=== PATIENT | female | born 1940 | race Caucasian/White ===

== ENCOUNTER 2019-07-13 06:58 | Outpatient (REF) | payer MEDICARE, SELFPAY ==
[2019-07-13 08:26] LABS: Estmated Average Glucose 143; Hemoglobin A1C 6.6 % (4.0-6.0)
[2019-07-13 10:51] LABS: Chol HDL Ratio 3.28 mg/dL (0.0-4.40); Cholesterol 141 mg/dL (0-200); Glucose 105 mg/dL (65-115); HDL Cholesterol 43 mg/dL (60-100); LDL Cholesterol Calculated 76 mg/dL (50-129); LDL HDL Ratio 1.77 RATIO (0.00-3.22); Triglycerides 108 mg/dL (0-150)
== END 2019-07-13 06:59 | disposition home or self-care (01) ==
LOC: LAB 06:58
PROVIDERS: Family Provider Family Medicine; Visit Provider Dermatology
DX: Z01.89 Encounter for other specified special examinations (principal)
CPT/HCPCS: 80061; 82947; 83036

== ENCOUNTER 2019-07-20 11:33 | Outpatient (CLI) | payer MEDICARE, SELFPAY ==
--- NOTE | 2019-07-20 | XR_ITS ---
WS: [id number] ELBOW LEFT TECHNIQUE: 2 views of the left elbow CLINICAL INFORMATION: LEFT ELBOW PAIN COMPARISON: None. FINDINGS: No significant joint effusion. Distal humerus is normal in appearance. Normal radial head. Normal ole cranon. No evidence of acute fracture dislocation. XR/XR elbow LT 2V [id number] IMPRESSION: Normal left elbow.
== END 2019-07-20 11:34 | disposition home or self-care (01) ==
LOC: RADOUTREAD 12:35
PROVIDERS: Family Provider Family Medicine; Visit Provider Family Medicine
DX: Z76.89 Persons encountering health services in other specified circumstances (principal)

== ENCOUNTER 2019-07-31 10:27 | Outpatient (RCR) | payer MEDICARE, SELFPAY | END 2019-09-12 23:00 | disposition home or self-care (01) | LOC: SOT 10:27 | PROVIDERS: Family Provider Family Medicine; PCP Family Medicine; Referring Provider Orthopaedic Surgery; Visit Provider Orthopaedic Surgery | DX: M77.02 Medial epicondylitis, left elbow (principal) | CPT/HCPCS: 97110; 97140; 97167 ==

== ENCOUNTER 2019-08-05 06:00 | Outpatient (RCR) | payer MEDICARE, OTHER, SELFPAY | END 2019-09-04 23:59 | disposition home or self-care (01) | LOC: SOT 06:00 | PROVIDERS: Family Provider Family Medicine; PCP Family Medicine; Referring Provider Orthopaedic Surgery; Visit Provider Orthopaedic Surgery | DX: M77.02 Medial epicondylitis, left elbow (principal) | CPT/HCPCS: 97035; 97110; 97140; 97530; L3908 ==

== ENCOUNTER 2019-09-05 06:00 | Outpatient (RCR) | payer MEDICARE, OTHER, SELFPAY | END 2019-10-04 23:59 | disposition home or self-care (01) | LOC: SOT 06:00 | PROVIDERS: Family Provider Family Medicine; PCP Family Medicine; Referring Provider Orthopaedic Surgery; Visit Provider Orthopaedic Surgery | DX: M77.02 Medial epicondylitis, left elbow (principal) | CPT/HCPCS: 97110 ==

== ENCOUNTER 2020-02-13 13:24 | Outpatient (CLI) | payer MEDICARE, SELFPAY ==
--- NOTE | 2020-02-13 13:32 | MM_ITS ---
WS: [id number] BILATERAL DIGITAL SCREENING MAMMOGRAPHY WITH CAD CLINICAL INFORMATION: SCREENING HISTORY: Screening mammogram. No current complaints. COMPARISON: TECHNIQUE: Bilateral CC and MLO views. FINDINGS: The breasts are composed of heterogeneous fibroglandular density tissue, which can limit the detectio n of small underlying mass lesions. No suspicious mass, asymmetry, calcifications, or architectural d istortion. No evidence of malignancy. Stable secretory and punctate calcifications. Vascular calcific ation. MM/[id number] IMPRESSION: BI-RADS: 2-Benign FOLLOW UP: 1 Year Follow-up Recommend return to annual screening mammography.
== END 2020-02-13 13:25 | disposition home or self-care (01) ==
LOC: RADSHAW 13:31
PROVIDERS: PCP Family Medicine; Visit Provider Family Medicine
DX: Z12.31 Encounter for screening mammogram for malignant neoplasm of breast (principal)
CPT/HCPCS: 77067

== ENCOUNTER 2021-03-11 11:10 | Outpatient (CLI) | payer MEDICARE, SELFPAY ==
--- NOTE | 2021-03-11 11:16 | MM_ITS ---
WS: [id number] BILATERAL SCREENING DIGITAL MAMMOGRAM WITH CAD HISTORY: SCREENING COMPARISON: 02/13/2020 and 07/07/2018 Bilateral CC and MLO views submitted. Computer aided detection analyzed. Breast composition: The breasts are heterogeneously dense, which may obscure small masses. No suspici ous masses, microcalcifications or architectural distortion. Scattered benign calcifications and vasc ular calcifications. MM/[id number] IMPRESSION: BI-RADS: 2-Benign FOLLOW UP: 1 Year Follow-up
== END 2021-03-11 11:11 | disposition home or self-care (01) ==
LOC: RADSHAW 11:15
PROVIDERS: PCP Family Medicine; Visit Provider Family Medicine
DX: Z12.31 Encounter for screening mammogram for malignant neoplasm of breast (principal)
CPT/HCPCS: 77067

== ENCOUNTER 2022-04-02 13:43 | Outpatient (CLI) | payer MEDICARE, OTHER, SELFPAY ==
--- NOTE | 2022-04-02 13:51 | MM_ITS ---
WS: [id number] BILATERAL 3D TOMOSYNTHESIS DIGITAL SCREENING MAMMOGRAPHY WITH CAD CLINICAL INFORMATION: SCREENING HISTORY: Screening mammogram. No current complaints. COMPARISON: April 02, 2022 TECHNIQUE: Bilateral CC and MLO views. FINDINGS: Scattered fibroglandular densities bilaterally. No suspicious focal mass, asymmetry, calcifications, or architectural distortion. No evidence of malignancy. Punctate and secretory calcifications. Vascul ar calcifications. MM/[place] [id number] IMPRESSION: BI-RADS: 2-Benign FOLLOW UP: 1 Year Follow-up Recommend return to annual screening mammography.
== END 2022-04-02 13:44 | disposition home or self-care (01) ==
LOC: RAD 13:43
PROVIDERS: PCP Family Medicine; Visit Provider Family Medicine
DX: Z12.31 Encounter for screening mammogram for malignant neoplasm of breast (principal); R30.0 Dysuria
CPT/HCPCS: 77063; 77067; 81000; 87086

== ENCOUNTER 2022-04-13 12:44 | Outpatient (CLI) | payer MEDICARE, OTHER, SELFPAY ==
--- NOTE | 2022-04-13 13:30 | XR_ITS ---
WS: [id number] SCREENING DEXA SCAN RSB SPINE CLINICAL INFORMATION: osteoporosis COMPARISON: None. FINDINGS: The L1-L4 bone mineral density measures 1.227 g/cm2. This corresponds to a T score score of 0.4 and Z score of 2.6. Left femoral neck bone mineral density measures 0.837 g/cm2. This corresponds to a T score of -1.4 an d Z score of 1.1. Right femoral neck bone mineral density measures 0.820 g/cm2. This corresponds to a T score -1.5of an d Z score of 0.9. Mean femoral neck bone mineral density measures 0.828 g/cm2. This corresponds to a T score of -1.4 an d Z score of 1.0. XR/XR DEXA axial skeleton* [id number] IMPRESSION: Normal bone mineralization lumbar spine. Osteopenia femoral necks. Patient's FRAX calculated 10 year probability for major osteoporotic fracture i s 15.7 % and osteoporotic hip fracture is 4.8%.
== END 2022-04-13 12:45 | disposition home or self-care (01) ==
LOC: RAD 12:46
PROVIDERS: PCP Family Medicine; Visit Provider Family Medicine
DX: M81.0 Age-related osteoporosis without current pathological fracture (principal); M85.852 Other specified disorders of bone density and structure, left thigh; M85.851 Other specified disorders of bone density and structure, right thigh; R30.0 Dysuria
CPT/HCPCS: 77080; 81000

== ENCOUNTER → 2022-06-08 07:45 | Outpatient (BNVA) | payer MEDICARE, OTHER, SELFPAY | PROVIDERS: PCP Family Medicine; Visit Provider Family Medicine | DX: E03.9 Hypothyroidism, unspecified (principal); E78.5 Hyperlipidemia, unspecified; I10 Essential (primary) hypertension; R73.9 Hyperglycemia, unspecified | CPT/HCPCS: 80053; 80061; 83036; 84443 ==

== ENCOUNTER → 2022-11-25 08:21 | Outpatient (BNVA) | payer MEDICARE, OTHER, SELFPAY | PROVIDERS: PCP Family Medicine; Visit Provider Family Medicine | DX: E03.9 Hypothyroidism, unspecified (principal); E78.5 Hyperlipidemia, unspecified; I10 Essential (primary) hypertension | CPT/HCPCS: 84443 ==

== ENCOUNTER 2023-04-18 19:38 | Emergency (ER) | payer MEDICARE, OTHER, SELFPAY ==
[2023-04-18 19:42] VITALS: BP 175/73; PULSE 82; RESP 18; TEMP 36.4; O2SAT 99; BMI 24.6
--- NOTE | 2023-04-18 19:57 | W.ED.FEMALGU ---
HPI - Female Genitourinary General: Chief complaint: Urogenital-Female Stated complaint: uti, low abd pain Time Seen by Provider: 04/18/23 19:55 History of Present Illness: 83-year-old female comes in today with urinary discomfort since Tuesday. Patient noticed blood in her urine today when she wiped. Patient appears nontoxic. Patient does have a history of urinary tract infections and vaginitis. Patient takes medications for blood pressure, cholesterol, high blood pressure,. Patient's had a history of hysterectomy. Associated symptoms: Deny nausea Review of Systems General: Reports: 10 or more systems reviewed and unremarkable except in HPI and below Const: Reports: chills; Denies: fever(s) Card: Denies: chest pain Resp: Denies: dyspnea GI: Denies: nausea, vomiting, diarrhea or constipation : Reports: difficulty voiding and hematuria Musc: Denies: neck pain or back pain Skin/Breast: Denies: rash PFSH ED PFSH: Medical History Hyperlipidemia Hypertension Hypothyroidism Postmenopausal osteoporosis TIA (transient ischemic attack) Vitamin D deficiency Surgical History History of total abdominal hysterectomy and bilateral salpingo-oophorectomy Hx of tonsillectomy Social History Smoking and tobacco/nicotine status: never used tobacco/nicotine Alcohol intake: never Current occupational status: retired Physical Exam Const: COMMON NORMALS: alert HENMT: COMMON NORMALS: normocephalic HEAD & SCALP: normocephalic Neck/C-Spine: COMMON NORMALS: full ROM Resp: COMMON NORMALS: normal respiratory effort and clear to auscultation bilaterally AUSCULTATION: clear to auscultation bilaterally Cardio: COMMON NORMALS: regular rate and regular rhythm RATE: regular rate RHYTHM: regular rhythm GI: COMMON NORMALS: Soft to palpation and non-tender PALPATION: Yes Soft to palpation : COMMON NORMALS: Yes no CVA tenderness BLADDER/KIDNEY EXAM: Yes no CVA tenderness EXTERNAL FEMALE EXAM: Yes normal appearance of the urethra and No erythema Back/Pelvis: COMMON NORMALS: no CVA tenderness Extremity: COMMON NORMALS: normal to inspection Neuro: SENSORIUM/ORIENTATION: Yes alert Skin: COMMON NORMALS: turgor normal GENERAL SKIN EXAM: turgor normal Course Vital Signs: Vital signs: Vital Signs Temperature 97.5 F L 04/18/23 19:42 Pulse Rate 82 04/18/23 19:42 Respiratory Rate 18 04/18/23 20:30 Blood Pressure 96/53 04/18/23 20:30 Pulse Oximetry 98 04/18/23 20:30 MDM - Female Medical Decision Making 83-year-old female comes in today for complaints of dysuria and blood in urine. Patient appears nontoxic. Abdomen soft nontender. No CVA tenderness. Examination of the external genitalia notes no swelling or redness of the urethra and no blood in the vaginal vault. Swabs are sent to lab for wet prep and genital culture. Vital signs are normal. Differential diagnosis includes but not limited to urinary tract infection, vaginitis, urethritis, pelvic tumor/cancer. Wet prep was unremarkable. CBC had a white count of 15.6. Bladder wall thickening was noted on CT. CMP was unremarkable. Patient was nontoxic and stable. Patient be treated for acute cystitis with cephalexin 500 mg twice daily for 7 days. Patient was recommended to follow-up with primary care in 1 week for recheck of urine. Recommend return to ER for worsening symptoms. Patient and family both reported understanding. Lab Data 04/18/23 20:01 04/18/23 20:01 Radiology Impressions Abdomen/Pelvis CT 04/18/23 20:06 IMPRESSION: 1. Small pericardial effusion. 2. Diffuse, mild bladder wall thickening . In the correct clinical setting, this may suggest cystitis. Recommend correlation with laboratory findings. Alternatively, this may be secondary to chronic outlet obstruction. 3. Multiple clustered foci of calcifications in both lobes of the liver, findings suggest calcified or partially calcified hemangiomas. 4. Incidental/nonacute findings are listed in the report. COMMENTS: Consistent with the [employer]'s Incidental Findings Committee white paper (J Am Ricki Radiol 2018): Any incidental renal lesion less than 1 cm or classified as too small to characterize, or any incidental cystic renal lesion characterized as simple-appearing, is likely benign. No follow-up imaging is recommended for these lesions per consensus recommendations based on imaging criteria. Laboratory Results WBC 15.66 10^3/uL (3.29-11.43) H 04/18/23 20:01 RBC 3.51 10^6/uL (3.85-5.65) L 04/18/23 20: Hgb 12.00 g/dL (11.27-16.99) 04/18/23 20: Hct 36.8 % (36-47) 04/18/23 20: MCV 104.8 fl (85-98) H 04/18/23 20: MCH 34.2 pg (27-33) H 04/18/23 20: MCHC 32.6 g/dL (30-55) 04/18/23 20: RDW 14.8 % (12.1-15.1) 04/18/23 20: Plt Count 224 10^3/cmm (157-399) 04/18/23 20: MPV 9.4 fL (7.4-10.4) 04/18/23 20: Neut % (Auto) 49.9 % 04/18/23 20: Lymph % (Auto) 24.8 % 04/18/23 20: [place] % (Auto) 22.5 % 04/18/23 20: Eos % (Auto) 1.5 % 04/18/23 20: Baso % (Auto) 0.4 % 04/18/23 20: Neut # (Auto) 7.82 10^3/uL (1.8-7.7) H 04/18/23 20: Lymph # (Auto) 3.9 10^3/uL (0.8-4.8) 04/18/23 20: [place] # (Auto) 3.5 10^3/uL (0.2-0.9) H 04/18/23 20: Eos # (Auto) 0.2 10^3/uL (0.0-0.8) 04/18/23 20: Baso # (Auto) 0.1 10^3/uL (0.0-0.1) 04/18/23 20: Nucleated RBC % (auto) 0 % 04/18/23 20: Nucleated RBCs # 0.0 /100WBC 04/18/23 20: Sodium 136 mmol/L (136-145) 04/18/23 20: Potassium 3.8 mmol/L (3.5-5.1) 04/18/23 20:01 Chloride 99 mmol/L (98-107) 04/18/23 20:01 Carbon Dioxide 25 mmol/L (22-29) 04/18/23 20: Anion Gap 15.8 (5-19) 04/18/23 20: BUN 16 mg/dL (8-23) 04/18/23 20: Creatinine 0.7 mg/dL (0.5-0.9) 04/18/23 20: GFR Calculation Not Reportable 04/18/23 20: Glucose 105 mg/dL (65-115) 04/18/23 20: Calculated Osmolality 284 mOsm/kg (285-295) L 04/18/23 20: Calcium 10.0 mg/dL (8.5-10.5) 04/18/23 20: Total Bilirubin 0.6 mg/dL (0.15-1.2) 04/18/23 20: AST 18 U/L (0-32) 04/18/23 20: ALT 20 U/L (0-33) 04/18/23 20:01 Alkaline Phosphatase 81 U/L (35-105) 04/18/23 20:01 Total Protein 7.8 g/dL (6.6-8.7) 04/18/23 20: Albumin 4.6 g/dL (3.5-5.2) 04/18/23 20: Globulin 3.2 g/dL (1.3-4.6) 04/18/23 20: Lipase 48 U/L (13-60) 04/18/23 20: Urine Color Yellow (Yellow) 04/18/23: Urine Appearance Hazy (CLEAR) A 04/18/23: Urine pH 7 (5-7) 04/18/23: Ur Specific [place] 1.010 (1.005-1.030) 04/18/23: Urine Protein Neg (Negative) 04/18/23: Urine Glucose (UA) Norm (Normal) 04/18/23: Urine Ketones Negative (Negative) 04/18/23: Urine Blood 3+ (Negative) H 04/18/23: Urine Nitrate Positive (Negative) H 11/13/23 21:23 Urine Bilirubin Neg (Negative) 04/18/23 21:23 Urine Urobilinogen Norm mg/dL (Negative) 04/18/23 21:23 Ur Leukocyte Esterase 2+ (Negative) H 04/18/23 21:23 Urine RBC 0-4 /hpf (0-2) H 04/18/23 21:23 Urine WBC 25-40 /hpf (0-5) H 04/18/23 21:23 Ur Squamous Epith Cells 5-10 /hpf (0-5) H 04/18/23 21:23 Amorphous Sediment Not Reportable 04/18/23 21:23 Urine Bacteria 3+ /hpf (NONE) H 04/18/23 21:23 All radiology interpretation(s) finalized by discharge Discharge Plan Discharge Patient Disposition: Home Clinical Impression: Urinary tract infection Qualifiers: Urinary tract infection type: acute cystitis Hematuria presence: with hematuria Qualified Code(s): N30.01 - Acute cystitis with hematuria Condition: Stable Prescriptions: New cephalexin 500 mg capsule 500 mg PO BID 7 Days Qty: 13 0RF hydrocodone-acetaminophen 5-325 mg tablet 1 tab PO Q8H PRN (Reason: pain (scale score 7-10)) Qty: 7 0RF No Action coenzyme Q10 [CoQ-10] 30 mg capsule 30 mg PO DAILY Ocuvite Adult 50 Plus 250-5-1 mg capsule 1 cap PO DAILY aspirin [Adult Low Dose Aspirin] 81 mg tablet,delayed release (DR/EC) 81 mg PO DAILY levothyroxine 75 mcg capsule 75 mcg PO DAILY Qty: 90 11RF hydrochlorothiazide 25 mg tablet 25 mg PO DAILY Qty: 90 3RF triamcinolone acetonide 0.1 % ointment 1 applic topical BID PRN (Reason: psoriasis) 14 Days Qty: 30 2RF lisinopril 20 mg tablet 20 mg PO DAILY Qty: 30 11RF amlodipine [Norvasc] 5 mg tablet 5 mg PO DAILY Qty: 30 11RF atorvastatin [Lipitor] 40 mg tablet 40 mg PO DAILY Qty: 90 3RF Discharge Orders: Discharge ED (Routine); Ordered 04/18/23 Ordered By: Haile Giordano Referrals: Freeman Sanchez MD [Primary Care Provider] - Discharge Diet: Usual diet Discharge Activity: Increase activity as tolerated Patient Instructions: Urinary Tract Infection in Women (ED) Activity Restrictions/Additional Instructions: Drink plenty of water and fluids. Activity as tolerated. Take antibiotic cephalexin 500 mg 1 capsule 2 times a day for 7 days total. Follow-up with primary care in 1 week for recheck. You may need to have further evaluation with a urologist for persistent blood in urine. Return to ER for new concerns or worsening symptoms such as high fever greater than 100.4, inability to hold fluids down, worsening bleeding, or severe abdominal pain. Coding Level of Care Code ED Recreation Establishment Manager for Cassandra Alan
[2023-04-18 20:06] LABS: Basophils # 0.1 10^3/uL (0.0-0.1); Basophils % 0.4 %; Eosinophils # 0.2 10^3/uL (0.0-0.8); Eosinophils % 1.5 %; Hematocrit 36.8 % (36-47); Lymphocytes # 3.9 10^3/uL (0.8-4.8); Lymphocytes % 24.8 %; Mean Corpuscular HGB Conc 32.6 g/dL (30-55); Mean Corpuscular Hemoglobin 34.2 pg (27-33); Mean Corpuscular Volume 104.8 fl (85-98); Mean Platelet Volume 9.4 fL (7.4-10.4); Monocytes # 3.5 10^3/uL (0.2-0.9); Monocytes % 22.5 %; Neutrophils # 7.82 10^3/uL (1.8-7.7); Neutrophils % 49.9 %; Nucleated Red Blood Cells % 0 %; Platelet Count 224 10^3/cmm (157-399); Red Blood Count 3.51 10^6/uL (3.85-5.65); Red Cell Distribution Width 14.8 % (12.1-15.1); White Blood Count 15.66 10^3/uL (3.29-11.43)
--- NOTE | 2023-04-18 20:06 | CTR_ITS ---
PROCEDURE INFORMATION: Exam: CT Abdomen And Pelvis Without Contrast Exam date and time: 04/18/2023 8:11 PM Age: 83 years old Clinical indication: Abdominal pain; Localized; Right lower quadrant (rlq); Additional info: Right inguinal pain, hematuria, possible renal calculi TECHNIQUE: Imaging protocol: Computed tomography of the abdomen and pelvis without contrast. Sagittal and coronal reformatted images were created and reviewed. Radiation optimization: All CT scans at this facility use at least one of these dose optimization techniques: automated exposure control; mA and/or kV adjustment per patient size (includes targeted exams where dose is matched to clinical indication); or iterative reconstruction. REPORTING DATA: Count of CT and Cardiac NM exams in prior 12 months: This patient has received 0 known CTs and 0 known cardiac nuclear medicine studies in the 12 months prior to the current study. COMPARISON: No relevant prior studies available. RADIATION DOSE METRICS: Total DLP (mGy-cm): 376.14 FINDINGS: Lungs: Visualized lungs are clear. Calcified granuloma in the left lower lobe. Pleural spaces: No pleural effusion. Heart: Visualized portions of the heart are mildly enlarged. Small pericardial effusion. Liver: Multiple calcified granulomas in the liver. Multiple clustered foci of calcifications in both lobes of the liver, findings suggest calcified or partially calcified hemangiomas. Gallbladder and bile ducts: The gallbladder is unremarkable. No biliary ductal dilatation. Pancreas: The pancreas is unremarkable. No pancreatic ductal dilatation. Spleen: The spleen is unremarkable. Adrenal glands: The right and left adrenal glands are unremarkable. Kidneys and ureters: The right kidney is unremarkable. Simple cyst in the left kidney measuring 4.2 cm. The right and left ureters are unremarkable. No hydroureteronephrosis. No calcified urolithiasis. Stomach and bowel: The stomach is unremarkable for the degree of distension. No acute abnormality in the small bowel. No acute abnormality in the colon. Appendix: Appendix not definitely visualized. No inflammatory changes in the pericecal region however. Intraperitoneal space: No free intraperitoneal air. No ascites. No loculated fluid collections to suggest an abscess. Vasculature: Mild atherosclerotic changes in the visualized arteries. No evidence for aortic aneurysm. Lymph nodes: No lymphadenopathy. Urinary bladder: Diffuse, mild bladder wall thickening . Reproductive: Patient has had a previous hysterectomy. The ovaries are not definitely visualized, not an expected in a postmenopausal female. This may be due to ovarian atrophy. Alternatively, the patient may have had a previous bilateral oophorectomy. Bones/joints: Degenerative changes in the spine and hips. Grade I anterolisthesis of L4 on L5, likely due to facet degenerative change. Moderate spinal canal stenosis at L3-L4 and L5-S1. Mild spinal canal stenosis at L2-L3. Multilevel foraminal stenosis of varying severity in the visualized spine. Soft tissues: No acute abnormality in the extra-abdominal soft tissues. CT/CT abdomen pelvis wo con [id number] IMPRESSION: 1. Small pericardial effusion. 2. Diffuse, mild bladder wall thickening . In the correct clinical setting, this may suggest cystitis. Recommend correlation with laboratory findings. Alternatively, this may be secondary to chronic outlet obstruction. 3. Multiple clustered foci of calcifications in both lobes of the liver, findings suggest calcified or partially calcified hemangiomas. 4. Incidental/nonacute findings are listed in the report. COMMENTS: Consistent with the [employer]'s Incidental Findings Committee white paper (J Am Ricki Radiol 2018): Any incidental renal lesion less than 1 cm or classified as too small to characterize, or any incidental cystic renal lesion characterized as simple-appearing, is likely benign. No follow-up imaging is recommended for these lesions per consensus recommendations based on imaging criteria.
[2023-04-18 20:28] LABS: Alanine Aminotransferase 20 U/L (0-33); Albumin Level 4.6 g/dL (3.5-5.2); Alkaline Phosphatase 81 U/L (35-105); Anion Gap 15.8 (5-19); Aspartate Amino Transferase 18 U/L (0-32); Blood Urea Nitrogen 16 mg/dL (8-23); Carbon Dioxide 25 mmol/L (22-29); Chloride 99 mmol/L (98-107); Globulin 3.2 g/dL (1.3-4.6); Glucose 105 mg/dL (65-115); Lipase 48 U/L (13-60); Osmolality Calculated 284 mOsm/kg (285-295); Potassium 3.8 mmol/L (3.5-5.1); Sodium 136 mmol/L (136-145); Total Bilirubin 0.6 mg/dL (0.15-1.2); Total Protein 7.8 g/dL (6.6-8.7)
[2023-04-18 20:30] VITALS: BP 96/53; RESP 18; O2SAT 98
[2023-04-18] MEDS: cephALEXin 500 mg Capsule PO (21:33)
[2023-04-18] MEDS: HYDROcodone-acetaminophen 5-325 mg Tablet 1 TAB PO (21:43)
--- NOTE | 2023-04-18 21:43 | PC.NURSE ---
pt states she is in pain, suprapubic/vaginal area, notified NP. alireza Giordano to put in order.
[2023-04-18 21:47] LABS: Add Urine Microscopic? YES; Bacteria Urine 3+ /hpf; Bilirubin Urine Neg (Negative); Blood Urine 3+ (Negative); Glucose Urine UA Norm (Normal); Ketones Urine Negative (Negative); Leukocyte Esterase Urine 2+ (Negative); Nitrate Urine Positive (Negative); Protein Urine Neg (Negative); RBC Urine 0-4 /hpf (0-2); Urine Appearance Hazy (CLEAR); Urine Color Yellow (Yellow); Urobilinogen Urine Norm (Negative); WBC Urine 25-40 /hpf (0-5); pH Urine 7 (5-7)
[2023-04-18 21:48] LABS: Add Urine Culture? Yes
[2023-04-18 22:00] VITALS: BP 96/53; RESP 18; O2SAT 98
== END 2023-04-18 22:02 | disposition home or self-care (01) ==
PROVIDERS: Emergency Medicine; Emergency Provider Nurse Practitioner Family; PCP Family Medicine
DX: N30.01 Acute cystitis with hematuria (principal); Z79.82 Long term (current) use of aspirin; I31.39 Other pericardial effusion (noninflammatory); E78.5 Hyperlipidemia, unspecified; I10 Essential (primary) hypertension; Z86.73 Personal history of transient ischemic attack (TIA), and cerebral infarction without residual deficits
CPT/HCPCS: 36415; 74176; 80053; 81001; 83690; 85025; 87070; 87077; 87086; 87186; 87205; 87210; 99284

== ENCOUNTER → 2023-04-24 10:50 | Outpatient (BNVA) | payer MEDICARE, OTHER, SELFPAY | PROVIDERS: PCP Family Medicine; Visit Provider Nurse Practitioner | DX: R39.9 Unspecified symptoms and signs involving the genitourinary system (principal) | CPT/HCPCS: 81000; 87086 ==

== ENCOUNTER → 2023-05-03 13:02 | Outpatient (BNVA) | payer MEDICARE, OTHER, SELFPAY | PROVIDERS: PCP Family Medicine; Visit Provider Family Medicine | DX: R30.0 Dysuria (principal) | CPT/HCPCS: 81000 ==

== ENCOUNTER → 2023-06-09 08:36 | Outpatient (BNVA) | payer MEDICARE, OTHER, SELFPAY | PROVIDERS: PCP Family Medicine; Visit Provider Family Medicine | DX: I10 Essential (primary) hypertension (principal); E78.5 Hyperlipidemia, unspecified; E03.9 Hypothyroidism, unspecified | CPT/HCPCS: 80053; 80061; 84443; 85025 ==

== ENCOUNTER → 2023-08-09 08:29 | Outpatient (BNVA) | payer MEDICARE, OTHER, SELFPAY | PROVIDERS: PCP Family Medicine; Visit Provider Nurse Practitioner Family | DX: R30.0 Dysuria (principal) | CPT/HCPCS: 81000; 87077; 87086; 87184 ==

== ENCOUNTER → 2023-08-23 10:30 | Outpatient (BNVA) | payer MEDICARE, OTHER, SELFPAY | PROVIDERS: PCP Family Medicine; Visit Provider Nurse Practitioner Family | DX: R39.9 Unspecified symptoms and signs involving the genitourinary system (principal) | CPT/HCPCS: 81000; 87086 ==

== ENCOUNTER → 2023-12-05 08:11 | Outpatient (BNVA) | payer MEDICARE, OTHER, SELFPAY | PROVIDERS: PCP Family Medicine; Visit Provider Family Medicine | DX: R53.83 Other fatigue (principal); L30.9 Dermatitis, unspecified; E03.9 Hypothyroidism, unspecified; E78.5 Hyperlipidemia, unspecified; I12.9 Hypertensive chronic kidney disease with stage 1 through stage 4 chronic kidney disease, or unspecified chronic kidney disease; N18.9 Chronic kidney disease, unspecified | CPT/HCPCS: 80053; 80061; 84443; 85025 ==

== ENCOUNTER → 2024-05-14 12:45 | Outpatient (BNVA) | payer MEDICARE, OTHER, SELFPAY | PROVIDERS: PCP Family Medicine; Visit Provider Family Medicine | DX: R30.0 Dysuria (principal); R39.11 Hesitancy of micturition | CPT/HCPCS: 81000; 87086 ==

== ENCOUNTER → 2024-05-27 11:47 | Outpatient (BNVA) | payer MEDICARE, OTHER, SELFPAY | PROVIDERS: PCP Family Medicine | DX: R39.9 Unspecified symptoms and signs involving the genitourinary system (principal) | CPT/HCPCS: 81000; 87086 ==

== ENCOUNTER → 2024-06-14 08:27 | Outpatient (BNVA) | payer MEDICARE, SELFPAY | PROVIDERS: PCP Family Medicine; Visit Provider Family Medicine | DX: I10 Essential (primary) hypertension (principal); N18.9 Chronic kidney disease, unspecified; R53.83 Other fatigue; E11.9 Type 2 diabetes mellitus without complications | CPT/HCPCS: 80053; 80061; 84443; 85025 ==

== ENCOUNTER 2024-06-18 14:21 | Outpatient (CLI) | payer MEDICARE, SELFPAY ==
--- NOTE | 2024-06-18 14:30 | XR_ITS ---
WS: [id number] XR hip LT 2-3V wo/w pel* [id number] REASON FOR EXAM: left hip pain FINDINGS: No fracture or focal bone lesion. Moderate narrowing of the joint space with mild to moderate subchondral sclerosis and osteophytosis o f the acetabulum. XR/XR hip LT 2-3V wo/w pel* [id number] IMPRESSION: Moderate osteoarthritis of the left hip as above.
== END 2024-06-18 14:22 | disposition home or self-care (01) ==
LOC: RAD 14:25
PROVIDERS: PCP Family Medicine; Visit Provider Family Medicine
DX: M16.12 Unilateral primary osteoarthritis, left hip (principal); R30.0 Dysuria
CPT/HCPCS: 73502; 81000

== ENCOUNTER → 2024-08-07 11:07 | Outpatient (BNVA) | payer MEDICARE, SELFPAY | PROVIDERS: PCP Family Medicine; Visit Provider Emergency Medicine | DX: R39.9 Unspecified symptoms and signs involving the genitourinary system (principal) | CPT/HCPCS: 81000; 87086 ==

== ENCOUNTER → 2024-10-15 09:52 | Outpatient (BNVA) | payer MEDICARE, SELFPAY | PROVIDERS: PCP Family Medicine; Visit Provider Emergency Medicine | DX: R39.9 Unspecified symptoms and signs involving the genitourinary system (principal); R30.0 Dysuria | CPT/HCPCS: 81000; 87086 ==

== ENCOUNTER → 2024-11-30 12:50 | Outpatient (BNVA) | payer MEDICARE, SELFPAY | PROVIDERS: PCP Family Medicine; Visit Provider Emergency Medicine | DX: N39.0 Urinary tract infection, site not specified (principal) | CPT/HCPCS: 81000; 87086 ==

== ENCOUNTER → 2024-12-14 08:13 | Outpatient (BNVA) | payer MEDICARE, SELFPAY | PROVIDERS: PCP Family Medicine; Visit Provider Family Medicine | DX: I10 Essential (primary) hypertension (principal); E03.9 Hypothyroidism, unspecified; E78.5 Hyperlipidemia, unspecified | CPT/HCPCS: 80053; 80061; 84443 ==

== ENCOUNTER → 2025-02-05 15:17 | Outpatient (BNVA) | payer MEDICARE, SELFPAY | PROVIDERS: PCP Family Medicine; Visit Provider Emergency Medicine | DX: R39.11 Hesitancy of micturition (principal); R30.0 Dysuria | CPT/HCPCS: 81000; 87086 ==

== ENCOUNTER → 2025-03-12 08:40 | Outpatient (BNVA) | payer MEDICARE, SELFPAY | PROVIDERS: PCP Family Medicine; Visit Provider Family Medicine | DX: E87.1 Hypo-osmolality and hyponatremia (principal) | CPT/HCPCS: 80048 ==